=== PATIENT | female | born 1980 | race Caucasian/White ===

== ENCOUNTER 2018-06-14 15:33 | Emergency (ER) | payer OTHER ==
[~2018-06-14] VITALS: Ht 152.4 cm; Wt 83.8 kg
[2018-06-14 15:37] VITALS: BP 104/70
[2018-06-14] MEDS ORDERED: azithromycin 250mg tablet PO ONE (16:50)
[2018-06-14] MEDS ORDERED: penicillin G benzathine 1.2 million unit/2ml syringe IM ONE (16:50)
[2018-06-14] MEDS ORDERED: CefTRIAXone 250MG IM Kit w/LIDOcaine IM ONE (16:50)
[2018-06-14] MEDS ORDERED: ondansetron 4mg rapidly disintigrating tab PO ONE (16:50)
[2018-06-16 08:18] LABS: RPR Non Reactive (Non Reactive)
== END 2018-06-14 17:26 | disposition home or self-care (01) ==
LOC: ER 15:34
DX: Z20.2 Contact with and (suspected) exposure to infections with a predominantly sexual mode of transmission (principal); F17.200 Nicotine dependence, unspecified, uncomplicated
CPT/HCPCS: 36415; 86592; 87491; 87591; 96372; 99283; J0561; J0696